=== PATIENT | male | born 1985 | race Caucasian/White ===

== ENCOUNTER 2019-04-23 19:36 | Emergency (ER) | payer OTHER, SELFPAY ==
[2019-04-23] VITALS (7 sets, daily range): BP systolic 136–155; BP diastolic 40–84; PULSE 79–101; RESP 14–22; TEMP 36.6; O2SAT 94–99; BMI 25.0
[2019-04-23] MEDS: DiphenhydrAMINE 50 MG/ML Syringe 25 MG IV (19:54)
[2019-04-23] MEDS: MethylPREDNISolone 125 MG/2 ML Vial IV (19:54)
--- NOTE | 2019-04-23 20:13 | ED.DCSUM_ITS ---
History of Present Illness Chief Complaint: Allergic Reaction Detail of Chief Complaint: Generalized allergic reaction secondary to yellow jackets Informant: Patient Onset: Today, Hours Context: Sudden Onset Timing: Continuous Quality: Itching, swelling, rash and shortness of breath Location: Generalized Current Severity: Moderate Maximum Severity: Moderate Worsened by: Multiple yellowjacket envenomation Relieved by: Nothing Associated Symptoms: Lightheadedness, shortness of breath, swelling and rash Narrative: Patient is a healthy 33-year-old male who was stung by multiple yellow jackets. He presents because of rash, shortness of breath, lightheadedness and swelling. He denies prior allergic reaction. He denies swelling of his lips tongue or throat. He denies change in voice. He has no other symptoms. Prior similar symptoms: No Recent Illness/Hospitalization: No - Past Medical History (1) No significant past medical history Status: Acute Past Medical History - Allergies and Home Meds Allergies/Adverse Reactions: Allergies bee pollen Allergy (Verified 04/23/19 19:42) Hives Primary Care Physician: Alejandro Tillman MD [Primary Care Provider] - Prior records reviewed: No Past Medical History: None Surgical History: no surgical history Lives: Spouse/ Significant Other, With Family Smoking Status: Never smoker Alcohol: None Drugs: None Review of Systems General: Denies: Chills, Fever, Sweats Eyes: Denies: Visual changes - bilaterally, Blurred Vision - bilaterally, Diplopia ENT: Denies: Bilateral ear pain, Rhinorrhea, Sore throat Cardiovascular: Denies: Chest pain, Palpitations, Heart racing Respiratory: Reports: Dyspnea, Dyspnea on exertion. Denies: Cough Gastrointestinal: Denies: Abdominal pain, Nausea, Vomiting, Diarrhea, Melena, Hematochezia Genitourinary: Denies: Dysuria, Hematuria, Frequency Musculoskeletal: Reports: Swelling. Denies: Myalgias, Arthralgias, Neck pain, Back pain, Extremity Pain Skin: Reports: Rash. Denies: Wounds Neurological: Denies: Headache, Weakness, Numbness Psych: Denies: Depression, Anxiety Hematologic: Denies: Easy bruising, Easy bleeding Allergy: Reports: Uticaria. Denies: Swelling of the mouth, Swelling of the tongue Physical Exam Vital Signs/Narrative: Vital Signs Temp Pulse Resp BP Pulse Ox 04/23/19 20:03 98 16 155/40 H 98 04/23/19 19:38 97.9 F 88 14 150/84 H 94 Inital Vital Signs reviewed: Yes General: Well nourished, Well developed, No Acute Distress Head: Normocephalic, Atraumatic Eyes: Perrl, EOMI. Negative for: Pale conjunctiva, Scleral icterus, - ENT: Moist mucous membranes, No rhinorrhea, TM's clear, - - There is periorbital swelling. There is no angioedema of the lips, tongue or posterior pharynx. Neck: Supple, Nontender, No lymphadenopathy, No JVD, - - Trachea is midline. There is no inspiratory expiratory stridor Cardiovascular: Regular rate, Regular rhythm, No murmurs, Normal S1, Normal S2 Respiratory: No distress, Rales. Negative for: CTA bilaterally, Chest nontender Abdomen: Soft, Nontender, Nondistended, Normal bowel sounds Back: Nontender, Normal Inspection. Negative for: CVA tenderness, Spinal tenderness Skin: Rash. Negative for: Cyanosis, Diaphoresis, Jaundice, No Trauma Neurological: Alert, Oriented x3, Cranial nerves II-XII grossly intact, Normal Strength, Normal Sensation, Normal Gait Psychological: Normal affect, Normal Mood Diagnostic/Tx/Re-eval - Medical Decision Making Patient with generalized allergic reaction. He was treated with epinephrine, Solu-Medrol, Benadryl and IV Pepcid. He was told he will need to be observed for minimum of 4 hours. Patient with generalized allergic reaction secondary to hymenoptera envenomation, yellow jackets Patient was reassessed at 2200. His rash has resolved. His breathing symptoms have resolved. His exam is normal. She was reassessed at 2335. He has had no recurrence of his rash, angioedema or dyspnea. His exam is completely normal. Was discharged home with appropriate home-going instructions and EpiPen. - Critical Care Time Critical care time (excluding procedures): 30-74 minutes - 32, Discussing w/Patient &/or Family/[employer] Operator - Life-threatening illness anaphylaxis with angioedema ED Disposition - Plan for ED Patient: Disposition: Home or Assisted Living Diagnosis: Anaphylactic shock due to sting, Allergic angioedema Instructions: ALLERGIC REACTION, Insect (General) Prescriptions: Epi Pen (for allergic rxn) 0.3 mg IM X1 #2 syringe Prescription Printed Referrals: Alejandor Tillman MD [Primary Care Provider] - As Needed Additional Instructions: You need to carry your EpiPen at all times. You must avoid keeping it in a hot or cold place.
== END 2019-04-23 23:48 | disposition home or self-care (01) ==
PROVIDERS: Emergency Provider Emergency Medicine; Family Provider Family Medicine; PCP Family Medicine
DX: T78.2XXA Anaphylactic shock, unspecified, initial encounter (principal); T78.3XXA Angioneurotic edema, initial encounter
CPT/HCPCS: 96372; 96374; 96375; 99284; A4216; J3490

== ENCOUNTER 2022-03-05 11:02 | Emergency (ER) | payer OTHER, SELFPAY ==
[2022-03-05 11:04] VITALS: BP 141/98; PULSE 76; RESP 16; TEMP 37.2; O2SAT 97; BMI 24.2
--- NOTE | 2022-03-05 11:21 | EX.ED.DYSGE1 ---
HPI History of Present Illness Chief Complaint: Headache Detail of Chief Complaint: Headache after head trauma and subjective fever since head trauma Informant: patient and spouse/S.O. Onset/Context/Timing Onset: Yesterday Context: Sudden Onset Timing: Continuous Quality: Head discomfort cortex due to blunt trauma Location: Vertex of scalp Current Severity: Mild Maximum Severity: Moderate Worsened by: Initial impact Relieved by: [id number] analgesics Associated Symptoms Associated Symptoms: Sonophobia, nausea, cloudiness Narrative Narrative: Patient is a 36-year-old male who sustained blunt trauma to his head. Apparently a gate came down onto his head. He was not knocked unconscious. He was possibly dazed. Denies double vision, blurred vision loss of vision. Did report mild light sensitivity and sonophobia. Denies decreased hearing. Denies double vision, blurred vision loss of vision. Denies rhinorrhea, congestion postnasal drainage. Denies sore throat. Denies cardiac respiratory symptoms. Reported nausea without vomiting diarrhea. Denies urologic symptoms. Denied neurologic symptoms. Specifically no anesthesia, paresthesia or motor weakness. He denies problems with balance or coordination. Prior similar symptoms: No Recent Illness/Hospitalization: No PFSH PFSH Medical History no medical history no medical history Home Medications epinephrine 0.3 mg/0.3 mL injection, auto-injector 0.3 mg (0.3 mL) IM X1 ##2 04/23/19 [Rx Last Taken Unknown] Allergy/AdvReac Type Severity Reaction Status Date / Time bee pollen Allergy Hives Verified 03/05/22 11:07 Family History unable to obtain Surgical History no surgical history no surgical history Social History (Updated 03/05/22 @ 11:[address] Jimmie Trejo MD) household members: spouse and children Smoking Status: Never smoker substance use type: does not use ROS ROS ED Constitutional Constitutional ED: Reports fever(s) and subjective; Denies chills, sweats or weight loss Eyes Eyes: Reports other Details: Photophobia ; Denies blurry vision, change in vision or diplopia ENT ENT ED: Reports other Details: Sonophobia ; Denies ear pain, rhinorrhea or sore throat Cardiovascular Cardiovascular: Denies chest pain, orthopnea, palpitations or paroxysmal nocturnal dyspnea Respiratory/Chest Respiratory/Chest: Denies cough, dyspnea, dyspnea on exertion, orthopnea or paroxysmal nocturnal dyspnea Gastrointestinal Gastrointestinal: Reports nausea; Denies abdominal pain, constipation, diarrhea, melena or vomiting Genitourinary Genitourinary ED: Denies dysuria, hematuria or urinary frequency Musculoskeletal Musculoskeletal: Denies arthralgias, back pain, myalgias or neck pain Integumentary Denies abscess or rash Neurologic Neurologic: Reports headache(s); Denies paresthesias or weakness Endocrine Endocrinology: Denies cold intolerance, heat intolerance or polydipsia EXAM Physical Exam Const Vital Signs: 03/05/22 11:04 Temperature 99.0 F Temperature Source Temporal Pulse Rate 76 Respiratory Rate 16 Blood Pressure 141/98 H Blood Pressure Mean 112 Pulse Ox 97 Oxygen Delivery Method Room Air Positive well nourished and well developed General Appearance ED: well developed and NAD; Negative for cyanotic, diaphoretic or pallor HEENT Reports TM's clear and moist mucous membranes HEENT Narrative: There is no clinical signs of basilar skull fracture. There is no clinical findings of depressed skull fracture. There is no septal deviation hematoma noted. tenderness Tympanic Membrane ED: Yes TM's clear Eyes PERRL and EOMs intact bilaterally Eyes Narrative: There is no photophobia. There is no APD. Cup-to-disc ratio is normal. There is no papilledema. General Eye ED: Negative for pale conjunctiva or scleral icterus Neck no lymphadenopathy, supple and no JVD Resp normal respiratory effort and clear to auscultation bilaterally Cardio regular rate, regular rhythm, S1 normal heart sound and S2 normal heart sound GI normal to inspection, nondistended, normoactive bowel sounds, non-tender and non-distended Palpation: soft Back/Spine Cervical Spine: Negative for cervical spine tenderness Extremity General Extremety ED: Negative for edema or tenderness General Extremity: Negative for edema Neuro oriented x3, CN's II-XII intact bilaterally and no sensory deficits noted Neuro Narrative: DTRs are 2+ symmetric with no clonus or Babinski sign. Sensorium / Orientation: alert Motor Exam: strength 5/5 throughout Psych mental status grossly normal Skin General Skin Exam: elasticity normal; Negative for jaundice or pallor Lesions: lesion noted Rashes: rashes noted Trauma: Negative for abrasion MDM MDM MDM Narrative Medical decision making narrative: Patient presents because of headache and fever initially. then informing that she is concerned because he hit his head. Based on his history, physical exam he and his were told that he has a concussion. The fever that is subjective with other symptoms is all in all likelihood due to a viral infection. He was at a wedding and there was someone that was ill that he was near. Patient and were told concussion is a clinical diagnosis. Based on the [place] CT head rule and [place] rule imaging is not indicated or required. Discharge Plan Triage Chief Complaint: Headache ED Provider: Jimmie Trejo Dx/Rx/DC Orders Clinical Impression: Concussion without loss of consciousness, Viral illness Instructions: ED Concussion Prescriptions: No Action epinephrine 0.3 MG syringe 0.3 mg IM X1 Qty: 2 0RF Primary Care Provider: Alejandro Tillman Referrals: Alejandro Tillman MD [Primary Care Provider] - As Needed Disposition Disposition: Home, Self Care
== END 2022-03-05 11:44 | disposition home or self-care (01) ==
PROVIDERS: Emergency Provider Emergency Medicine; PCP Family Medicine; Visit Provider Emergency Medicine
DX: S06.0X0A Concussion without loss of consciousness, initial encounter (principal); B34.9 Viral infection, unspecified; W22.8XXA Striking against or struck by other objects, initial encounter
CPT/HCPCS: 99282